=== PATIENT | female | born 1990 | race Caucasian/White ===

== ENCOUNTER 2019-10-10 10:42 | Outpatient (CLI) | payer OTHER ==
--- NOTE | 2019-10-10 12:06 | RAD ---
X-RAY HYSTEROSALPINGOGRAM: History: Infertility. N97.9. Comparison: None. Findings: Patient was brought to the fluoroscopy suite where all questions were answered. The patient's pelvis was prepped and draped in normal sterile fashion. The internal os was cannulated . Contrast was instilled retrograde into the endometrial cavity. There are irregular linear filling defects within the lower uterine body with slight irregular contour of the endometrial cavity. There is adequate spillage of contrast through the fallopian tubes into the peritoneal space. Impression: 1. Appearance of synechiae of the lower uterine segment and uterine body. 2. Adequate contrast spillage into the peritoneal space. Transcribed Date/Time: 10/10/2019 12:14 PM
[2019-10-10] MEDS ORDERED: Iopamidol 300 61% 50 ML VIAL FS ONE (16:42)
== END 2019-10-10 10:43 | disposition home or self-care (01) ==
LOC: RAD 10:42
PROVIDERS: ATTEND Obstetrics & Gynecology
DX: N97.9 Female infertility, unspecified (principal); N85.6 Intrauterine synechiae
CPT/HCPCS: 58340; 74740; Q9967